=== PATIENT | male | born 1955 | race Caucasian/White ===

== ENCOUNTER → 2023-01-26 | Outpatient (RCR) | payer MEDICARE, OTHER ==
[~2023-01-26] MED LIST: ACCUPRIL20TAB PO; ACCUPRIL5MGTAB PO; ACTOS30 MG PO; ASPIRIN E.C. 8181 MG PO; BETAPACE 120MG120 MG PO; BETAPACE 80MG80 MG PO; CATAPRES0.2 MG PO; COREG12.5 MG PO; COUMADIN 3MG3 MG/TAB PO; CRANBERRY500 M3 PO; CYMBALTA 30MG30 MG PO; ELIQUIS 5MG PO; GLUCOPHAGE1000 MG PO; GLUCOPHAGE500 MG/TAB PO; GLUCOTROL 5M5 MG/TAB PO; GLUCOTROL10 MG PO; HYDRODIURIL50 MG PO; KLOR-CON SPRIN10 MEQ PO; LASIX 40MG TABL40 MG PO; LIPITOR 40MG TA40 MG PO; MAGNESIUM ELEM300 MG PO; MELATONIN5 M1 SL; MIRALAX PA17 GM/Dose PO; MULTI VITAMINS1 TAB PO; NATURAL MAGNES200 MG PO; NORVASC 10MG10 MG PO; ONE-A-DAY ESSE1 EACH PO; PRINIVIL20 MG PO; SENOKOT S 50 MG1 TAB PO; TOPROL XL 50MG50 MG PO; TYLENOL 325MG325 MG PO; VITAMIN D 400400 IU PO; VTAMINC250TA PO
== END | disposition home or self-care (01) ==
LOC: WSPT
DX: M47.816 Spondylosis without myelopathy or radiculopathy, lumbar region (principal); R53.1 Weakness

== ENCOUNTER 2023-02-21 13:30 | Outpatient (RCR) | payer MEDICARE, OTHER | END 2023-02-25 | disposition home or self-care (01) | LOC: WSC | DX: M47.816 Spondylosis without myelopathy or radiculopathy, lumbar region (principal); R29.898 Other symptoms and signs involving the musculoskeletal system ==